=== PATIENT | female | born 1995 | race Caucasian/White ===

== ENCOUNTER 2018-05-20 23:53 | Emergency (ER) | payer MEDICAID ==
[2018-05-21] MEDS ORDERED: NS 1,000 ML IV ONE (00:07)
--- NOTE | 2018-05-21 00:32 | EDPHY ---
H & P Stated Complaint: CP X2 hours, took 7-15mg adderal/ 300mg modafinil today Source: Patient - Personal History LMP (Females 10-55): 8-14 Days Ago Current Tetanus/Diphtheria Vaccine: Yes - Medical/Surgical History Hx Asthma: No Hx Chronic Respiratory Disease: No Hx Diabetes: No Hx Cardiac Disease: No Hx Renal Disease: No Hx Cirrhosis: No Hx Alcoholism: No Hx HIV/AIDS: No Hx Splenectomy or Spleen Trauma: No Other PMH: ADHD , - Social History Smoking Status: Never smoked Time Seen by Provider: 05/21/18 00:28 HPI/ROS: HPI CHIEF COMPLAINT: Chest pain, shortness of breath, anxiety after drug use HISTORY OF PRESENT ILLNESS: 23-year-old female, presents emergency room multitude of complaints which include anxiety, shortness of breath, chest discomfort after taking Adderall tonight, as well as modafanil. Patient reports that she is prescribed both of these medications for attention deficit hyperactivity disorder and weight loss. She takes these regularly. She took 7 doses of Adderall throughout the day today. As well as 300 mg of Modafanil. She typically does this regularly. She also did ecstasy recently. She went for a bike ride tonight which she often does late at night and goes for prolonged by glide to help her lose weight. She also states she has a hard time sleeping at night after taking Adderall. During a bike ride she developed chest pain and shortness of breath and anxiety. States she cannot take a full breath in. Denies history of PE. Denies pleuritic pain. Describes the pain as right-sided anterior chest. Does hurt when you press on her anterior right chest wall but no trauma reported. Past Medical History: Binge eating disorder, anxiety, substance abuse, bipolar disorder Past Surgical History: No recent surgery Social History: History of polysubstance abuse including ecstasy, abuses Adderall Family History: Noncontributory ROS REVIEW OF SYSTEMS: 10 Systems were reviewed and negative with the exception of the elements mentioned in the history of present illness. Exam Constitutional nontoxic, triage nursing summary reviewed, vital signs reviewed , awake/alert. Vital signs stable. Eyes normal conjunctivae and sclera, EOMI, PERRLA. HENT normal inspection, atraumatic, moist mucus membranes, no epistaxis, neck supple/ no meningismus, no raccoon eyes. Respiratory clear to auscultation bilaterally, normal breath sounds, no respiratory distress, no wheezing. Cardiovascular no murmur rub on exam. Right Chest wall mild tender palpation, rate normal, regular rhythm, no murmur, no edema, distal pulses normal. Gastrointestinal soft, non-tender, no rebound, no guarding, normal bowel sounds, no distension, no pulsatile mass. Genitourinary no CVA tenderness. Musculoskeletal no midline vertebral tenderness, full range of motion, no calf swelling, no tenderness of extremities, no meningismus, good pulses, neurovascularly intact. Skin pink, warm, & dry, no rash, skin atraumatic. Neurologic awake, alert and oriented x 3, AAOx3, moves all 4 extremities equally, motor intact, sensory intact, CN II-XII intact, normal cerebellar, normal vision, normal speech. Psychiatric normal mood/affect. Heme/Lymph/Immune no lymphadenopathy. Differential Diagnosis: Includes but is not limited to in a particular order polysubstance abuse, cardiac arrhythmia, stimulant abuse, PE, pneumothorax, cardiac disease, ACS, cardiac arrhythmia, pneumothorax Medical Decision Making: Plan for this patient IV establishment IV fluid bolus , EKG, chest x-ray, D-dimer, troponin, drug screen and re-evaluate. Re-evaluation: EKG interpretation by me on record in [employer] system. Impression time of EKG 0010 sinus rhythm rate of 77, no signs of acute ischemia. No ST elevation or ST depression. No prolonged intervals no T-wave inversions. No signs of cardiac arrhythmia. ED x-ray chest one view negative for acute cardiopulmonary disease. Interpreted myself. D-dimer noted to be negative. Troponin negative. Her 2nd troponin was negative She had a repeat EKG which is time 5:44 a.m. Sinus rhythm rate of 80, normal no acute ischemic changes. EKG nonischemic. Chest x-ray unremarkable 5:30 a.m. Patient resting comfortably no acute distress. Denies chest pain or shortness of breath. Vital signs stable. Drug screen positive for Adderall. 0633: Re-evaluation of the patient she states she is feeling much better however she reports she is very depressed. She denies being suicidal. She is homeless, she is interested in speaking with mental health. Will arrange this for her. She has been abusing Adderall, as well as Ecstasy, she has depression she also reports to me that she diagnosed with bipolar disorder. She states she has had increasing depression and has been turning to substances. She denies SI or HI. She is voluntary would like to speak to mental health palate She is medically cleared needs to speak with mental health voluntary. 0700: Signed over to Dr. Lopez. ([facility],[place]) Constitutional: Initial Vital Signs Temperature (C) 36.5 C 05/20/18 23:56 Heart Rate 85 05/20/18 23:56 Respiratory Rate 18 05/20/18 23:56 Blood Pressure 146/101 H 05/20/18 23:56 O2 Sat (%) 96 05/20/18 23:56 O2 Delivery Mode Room Air O2 (L/minute) 2 Allergies/Adverse Reactions: amoxicillin Allergy (Verified 05/21/18 00:01) Penicillins Allergy (Verified 05/21/18 00:01) Home Medications: Medication Instructions Recorded Adderall 10 MG (*) 05/20/18 - Data Points Laboratory Results: Laboratory Results 05/21/18 00:22 05/21/18 00:22 05/21/18 05/21/18 05/21/18 05:43 02:40 01:37 WBC RBC Hgb Hct MCV MCH MCHC RDW Plt Count MPV Neut % (Auto) Lymph % (Auto) [place] % (Auto) Eos % (Auto) Baso % (Auto) Nucleat RBC Rel Count Absolute Neuts (auto) Absolute Lymphs (auto) Absolute Monos (auto) Absolute Eos (auto) Absolute Basos (auto) Absolute Nucleated RBC Immature Gran % Immature Gran # D-Dimer Sodium Potassium Chloride Carbon Dioxide Anion Gap BUN Creatinine Estimated GFR Glucose Calcium Magnesium Total Bilirubin Conjugated Bilirubin Unconjugated Bilirubin AST ALT Alkaline Phosphatase POC Troponin I 0.00 ng/mL ng/mL 0.00 ng/mL ng/mL (0.00-0.08) (0.00-0.08) Total Protein Albumin Lipase Beta HCG, Qual Urine Opiates Screen NEGATIVE (NEGATIVE) Urine Barbiturates NEGATIVE (NEGATIVE) Ur Phencyclidine Scrn NEGATIVE (NEGATIVE) Ur Amphetamine Screen NON-NEGATIVE H (NEGATIVE) U Benzodiazepines Scrn NEGATIVE (NEGATIVE) Urine Cocaine Screen NEGATIVE (NEGATIVE) U Marijuana (THC) Screen NEGATIVE (NEGATIVE) 05/21/18 05/21/18 05/21/18 00:22 00:22 00:22 WBC RBC Hgb Hct MCV MCH MCHC RDW Plt Count MPV Neut % (Auto) Lymph % (Auto) [place] % (Auto) Eos % (Auto) Baso % (Auto) Nucleat RBC Rel Count Absolute Neuts (auto) Absolute Lymphs (auto) Absolute Monos (auto) Absolute Eos (auto) Absolute Basos (auto) Absolute Nucleated RBC Immature Gran % Immature Gran # D-Dimer 0.30 ug/mLFEU ug/mLFEU (0.00-0.50) Sodium 140 mEq/L mEq/L (135-145) Potassium 3.9 mEq/L mEq/L (3.5-5.2) Chloride 107 mEq/L mEq/L (97-110) Carbon Dioxide 25 mEq/l mEq/l (22-31) Anion Gap 8 mEq/L mEq/L (6-14) BUN 19 mg/dL mg/dL (7-23) Creatinine 0.6 mg/dL mg/dL (0.6-1.0) Estimated GFR > 60 Glucose 93 mg/dL mg/dL (70-100) Calcium 9.8 mg/dL mg/dL (8.5-10.4) Magnesium 1.7 mg/dL mg/dL (1.6-2.3) Total Bilirubin 0.4 mg/dL mg/dL (0.1-1.4) Conjugated Bilirubin 0.2 mg/dL mg/dL (0.0-0.5) Unconjugated Bilirubin 0.2 mg/dL mg/dL (0.0-1.1) AST 28 IU/L IU/L (14-46) ALT 36 IU/L IU/L (9-52) Alkaline Phosphatase 69 IU/L IU/L (38-126) POC Troponin I Total Protein 7.1 g/dL g/dL (6.3-8.2) Albumin 4.4 g/dL g/dL (3.5-5.0) Lipase 127 IU/L IU/L (23-300) Beta HCG, Qual NEGATIVE Urine Opiates Screen Urine Barbiturates Ur Phencyclidine Scrn Ur Amphetamine Screen U Benzodiazepines Scrn Urine Cocaine Screen U Marijuana (THC) Screen 05/21/18 00:22 WBC 8.63 10^3/uL 10^3/uL (3.80-9.50) RBC 4.39 10^6/uL 10^6/uL (4.18-5.33) Hgb 13.5 g/dL g/dL (12.6-16.3) Hct 38.6 % % (38.0-47.0) MCV 87.9 fL fL (81.5-99.8) MCH 30.8 pg pg (27.9-34.1) MCHC 35.0 g/dL g/dL (32.4-36.7) RDW 12.9 % % (11.5-15.2) Plt Count 298 10^3/uL 10^3/uL (150-400) MPV 9.5 fL fL (8.7-11.7) Neut % (Auto) 53.5 % % (39.3-74.2) Lymph % (Auto) 36.4 % % (15.0-45.0) [place] % (Auto) 8.5 % % (4.5-13.0) Eos % (Auto) 0.7 % % (0.6-7.6) Baso % (Auto) 0.7 % % (0.3-1.7) Nucleat RBC Rel Count 0.0 % % (0.0-0.2) Absolute Neuts (auto) 4.62 10^3/uL 10^3/uL (1.70-6.50) Absolute Lymphs (auto) 3.14 10^3/uL H 10^3/uL (1.00-3.00) Absolute Monos (auto) 0.73 10^3/uL 10^3/uL (0.30-0.80) Absolute Eos (auto) 0.06 10^3/uL 10^3/uL (0.03-0.40) Absolute Basos (auto) 0.06 10^3/uL 10^3/uL (0.02-0.10) Absolute Nucleated RBC 0.00 10^3/uL 10^3/uL (0-0.01) Immature Gran % 0.2 % % (0.0-1.1) Immature Gran # 0.02 10^3/uL 10^3/uL (0.00-0.10) D-Dimer Sodium Potassium Chloride Carbon Dioxide Anion Gap BUN Creatinine Estimated GFR Glucose Calcium Magnesium Total Bilirubin Conjugated Bilirubin Unconjugated Bilirubin AST ALT Alkaline Phosphatase POC Troponin I Total Protein Albumin Lipase Beta HCG, Qual Urine Opiates Screen Urine Barbiturates Ur Phencyclidine Scrn Ur Amphetamine Screen U Benzodiazepines Scrn Urine Cocaine Screen U Marijuana (THC) Screen Medications Given: Discontinued Medications Al Hydroxide/Mg Hydroxide (Maalox Susp) 30 ml PO EDNOW ONE Stop: 05/21/18 01:57 Last Admin: 05/21/18 02:03 Dose: 30 ml Hyoscyamine Sulfate (Levsin, Hyomax-Sl) 0.125 mg PO EDNOW ONE Stop: 05/21/18 01:58 Last Admin: 05/21/18 02:02 Dose: 0.125 mg Hyoscyamine Sulfate (Levsin, Hyomax-Sl) 0.125 mg PO EDNOW ONE Stop: 05/21/18 02:05 Last Admin: 05/21/18 02:05 Dose: 0.125 mg Sodium Chloride (Ns) 1,000 mls @ 0 mls/hr IV EDNOW ONE; Wide Open PRN Reason: Protocol Stop: 05/21/18 00:08 Last Admin: 05/21/18 00:24 Dose: 1,000 mls Lidocaine (Lidocaine 2% Jelly) 1 adal TP EDNOW ONE Stop: 05/21/18 01:59 Last Admin: 05/21/18 02:06 Dose: 15 ml Lorazepam (Ativan Injection) 1 mg IVP EDNOW ONE Stop: 05/21/18 01:21 Last Admin: 05/21/18 01:33 Dose: 1 mg Point of Care Test Results: Chemistry 05/21/18 05/21/18 05:43 01:37 POC Troponin I 0.00 ng/mL ng/mL 0.00 ng/mL ng/mL (0.00-0.08) (0.00-0.08) Departure - Departure Disposition: Home, Routine, Self-Care Clinical Impression: Anxiety, Polysubstance abuse Condition: Good Instructions: Polysubstance Abuse (ED), Anxiety (ED) Referrals: NONE *PRIMARY CARE P,. [Primary Care Provider] - As per Instructions [facility] [Clinic] - As per Instructions
[2018-05-21 00:36] LABS: PLATELET COUNT 298 10^3/uL (150-400)
[2018-05-21] MEDS ORDERED: LORazepam 2 MG/ML INJ IVP ONE (01:20)
[2018-05-21] MEDS ORDERED: MAG HYDROX/AL HYDROX/SIMETH 30 ML UDCUP PO ONE (01:56)
[2018-05-21] MEDS ORDERED: HYOSCYAMINE SULFATE 0.125 MG TAB PO ONE ×2 (01:57→02:04)
[2018-05-21] MEDS ORDERED: LIDOCAINE 2% JELLY 5 ML TUBE TP ONE (01:58)
[2018-05-21] MEDS ORDERED: HYOSCYAMINE SULFATE 0.125 MG TAB ONE (01:59)
[2018-05-21] MEDS ORDERED: LIDOCAINE 2% VISCOUS 15 ML UDCUP ONE (02:00)
--- NOTE | 2018-05-21 07:12 | CPEKG ---
Test Reason : OPEN Blood Pressure : / mmHG Vent. Rate : 077 BPM Atrial Rate : 077 BPM P-R Int : 134 ms QRS Dur : 084 ms QT Int : 371 ms P-R-T Axes : 036 050 041 degrees QTc Int : 420 ms Sinus rhythm Confirmed by Joseph No ([id number]) on 05/21/2018 7:12:17 AM Referred By: Confirmed By:Joseph No
--- NOTE | 2018-05-21 07:12 | CPEKG ---
Test Reason : OPEN Blood Pressure : / mmHG Vent. Rate : 080 BPM Atrial Rate : 079 BPM P-R Int : 133 ms QRS Dur : 077 ms QT Int : 370 ms P-R-T Axes : 046 047 036 degrees QTc Int : 427 ms Sinus rhythm Confirmed by Joseph No ([id number]) on 05/21/2018 7:12:18 AM Referred By: Confirmed By:Joseph No
[2018-05-21 09:01] VITALS: BP 115/73
== END 2018-05-21 09:03 | disposition home or self-care (01) ==
DX: R41.9 Unspecified symptoms and signs involving cognitive functions and awareness (principal); F19.10 Other psychoactive substance abuse, uncomplicated; E86.9 Volume depletion, unspecified; Z59.0 Homelessness
CPT/HCPCS: 80305; 84484-ER; 96374; J2060

== ENCOUNTER 2018-10-04 12:40 | Emergency (ER) | payer MEDICAID, OTHER ==
[2018-10-04] MEDS ORDERED: NS 1,000 ML IV ONE (13:48)
[2018-10-04 14:00] LABS: PLATELET COUNT 300 10^3/uL (150-400)
--- NOTE | 2018-10-04 14:38 | EDPHY ---
General Time Seen by Provider: 10/04/18 13:00 Narrative: CLINICAL IMPRESSION: Pelvic pain, vaginal bleeding ASSESSMENT/PLAN: Patient is a 23 year old female who presents who presents to the emergency department with acute onset pelvic pain and vaginal bleeding. Patient is afebrile and nontoxic appearing, she is in no acute distress. Her abdomen is soft, generalized tenderness to palpation in the lower abdomen L>R, no peritoneal signs. CBC with no evidence of infection or acute blood loss anemia. BMP unremarkable. negative, rules out ectopic. Pelvic exam with normal appearing cervix, no cervical motion tenderness or discharge. Urinalysis with blood, no evidence of infection. Vaginal pathogens still pending. US with no cystic or solid adnexal masses, no intraperitoneal fluid, normal blood flow to ovaries. No evidence of torsion, no ovarian cyst, TOA and no evidence of surgical abdomen. There were also no findings to suggest other intra-abdominal processes to include appendicitis, diverticulitis, obstruction or perforation. Patient was very reassuring workup, query dysfunctional uterine bleeding. In light of sudden-onset pelvic pain and vaginal bleeding I have a very low suspicion for infectious process or PID. No antibiotics were given. She does not have a primary care provider or OBGYN, referral given for both. Conservative return precautions discussed. DIFFERENTIAL DX: Abdominal pain in a female including but not limited to ovarian cyst, pelvic inflammatory disease, ovarian torsion, urinary tract infection, and appendicitis. ED COURSE: 1335: Case discussed with Dr. Lopez. 1421: Pelvic exam performed with Erinn LOVE temple meat cutter. 1522: Case discussed with radiologist, pelvic ultrasound with no acute findings. 1526: Results discussed with patient, she is very reassured. Her abdomen is soft with very mild tenderness to palpation in her generalized lower abdomen, still left greater than right. There are no peritoneal signs and there is no evidence of a surgical abdomen. CHIEF COMPLAINT: Pelvic pain, vaginal bleeding HPI: Patient is a 23-year-old female with a history of amphetamine abuse currently on no walks own presents to the emergency department with acute, sudden onset vaginal bleeding and pelvic pain. Patient reports this morning she woke up feeling fine, she was at work when she had a sudden onset generalized lower abdominal pain, left greater than right. Shortly thereafter she noticed bleeding. Patient has not had a period since July, she does experience irregular menses. She is sexually active with multiple partners, does not use protection. She does not have a concern for STI. Patient denies any similar episodes in the past. She denies any significant bleeding, blood clots or passage of tissue. She is unsure if she is . She took 4 ibuprofen prior to arrival with improvement of her discomfort. She did experience some associated nausea however did not have any vomiting. She denies any chest pain , shortness of breath or upper abdominal pain. She denies any urinary symptoms to include dysuria, hematuria or frequency. Bowel movements have been regular and normal. Also denies any fever. She denies any vaginal pain or vaginal discharge. Was feeling absolutely fine up until this morning when the symptoms started. PMH: Amphetamine abuse Pertinent Past Surgical History: Denies Family History: Not contributory Social History: Denies current illicit drug use, alcohol or cigarette smoking REVIEW OF SYSTEMS: All other systems negative Constitutional: No fever, no chills, appetite change. Eyes: No discharge, vision change ENT: No sore throat, congestion, ear pain. Cardiovascular: No chest pain, no palpitations. Respiratory: No cough, no shortness of breath. Gastrointestinal: Nausea, no vomiting or diarrhea. Pelvic pain. Genitourinary: No dysuria or hematuria. No flank pain. Musculoskeletal: No back pain, joint swelling, joint pain, myalgias. Skin: No rashes, color change. Neurological: No headache, dizziness, weakness. PHYSICAL EXAM: General Appearance: Well-appearing, mildly uncomfortable appearing however not toxic-appearing. HENT: Normocephalic, atraumatic. Bilateral external ears are normal. Bilateral tympanic membranes are normal with pearly farooq reflex. Nares are clear, mucosa is pink. Oropharynx is clear, uvula is midline. There is no tonsillar enlargement or exudate. The dentition is normal. Eyes: PERRLA, EOMI. Conjunctiva pink, no pallor or injection. Neck: Supple, nontender, no lymphadenopathy, no midline pain, FROM, no meningismus. Respiratory: There are no retractions, lungs are clear to auscultation. Cardiac: Regular rate and rhythm, no murmurs or gallops. Gastrointestinal: Patient's abdomen is soft and nondistended, no appreciable incisions. Bowel sounds are present. Patient has generalized lower abdominal tenderness to palpation, left greater than right without rebound or guarding. No masses or hernias appreciated. No rigidity, guarding or focal peritoneal findings. Pelvic exam: Daniela Plasencia RN. Cervix is pink and healthy, nonfriable, no evidence of strawberry cervix. No cervical motion tenderness or she and L sign. There is no discharge. There is a moderate amount of dark blood noted in her vaginal vault. Neurological: Alert and oriented x 3, CN 2-12 grossly intact, normal sensation and strength. Skin: Warm, dry, no rashes, no nodules on palpation. Musculoskeletal: Extremities are symmetrical, full range of motion, no tenderness, deformity, swelling, or erythema. Psychiatric: Mood and affect are normal, there is no agitation. MEDICAL DECISION MAKING: Patient was seen independently. Secondary supervising physician at time of evaluation was Dr. Lopez, he did not evaluate this patient. Diagnosis: Pelvic pain, vaginal bleeding. Summary: See Assessment and Plan for summary of ED visit Clinical lab tests: ordered / reviewed. Independent visualization of images, tracing, or specimens: Yes. Decision to obtain medical records or history from someone other than the patient: No Review / Summarize previous medical records: Yes Discussed patient with another provider: Yes, Dr. Lopez Patient Progress: Stable, discharge. - Diagnostics Imaging Results: Imaging Impressions Pelvic/Renal Ultrasound 10/04/18 14:11 Impression: 1. Normal ovaries. No ovarian cyst, free fluid, or torsion. 2. Normal uterus and endometrial lining. Findings discussed with Emergency Department, MARIAM Aguayo on 10/04/2018 at 15:05 hours. - History Smoking Status: Never smoked - Objective Vital Signs: Initial Vital Signs Temperature (C) 36.7 C 10/04/18 12:43 Heart Rate 70 10/04/18 12:43 Respiratory Rate 18 10/04/18 12:43 Blood Pressure 108/84 H 10/04/18 12:43 O2 Sat (%) 99 10/04/18 12:43 O2 Delivery Mode Room Air Allergies/Adverse Reactions: amoxicillin Allergy (Verified 10/04/18 12:41) Penicillins Allergy (Verified 10/04/18 12:41) Home Medications: Medication Instructions Recorded Naltrexone 10/04/18 Laboratory Results: Laboratory Results 10/04/18 13:45 10/04/18 13:27 10/04/18 10/04/18 10/04/18 14:50 14:20 13:45 WBC RBC Hgb Hct MCV MCH MCHC RDW Plt Count MPV Neut % (Auto) Lymph % (Auto) [place] % (Auto) Eos % (Auto) Baso % (Auto) Nucleat RBC Rel Count Absolute Neuts (auto) Absolute Lymphs (auto) Absolute Monos (auto) Absolute Eos (auto) Absolute Basos (auto) Absolute Nucleated RBC Immature Gran % Immature Gran # Sodium Potassium Chloride Carbon Dioxide Anion Gap BUN Creatinine Estimated GFR Glucose Calcium Beta HCG, Qual NEGATIVE Urine Color YELLOW Urine Appearance CLEAR Urine pH 5.0 (5.0-7.5) Ur Specific [place] 1.021 (1.002-1.030) Urine Protein NEGATIVE (NEGATIVE) Urine Ketones NEGATIVE (NEGATIVE) Urine Blood 3+ H (NEGATIVE) Urine Nitrate NEGATIVE (NEGATIVE) Urine Bilirubin NEGATIVE (NEGATIVE) Urine Urobilinogen NEGATIVE EU EU (0.2-1.0) Ur Leukocyte Esterase NEGATIVE (NEGATIVE) Urine RBC 1-3 /hpf /hpf (0-3) Urine WBC 1-3 /hpf /hpf (0-3) Ur Epithelial Cells TRACE /lpf /lpf (NONE-1+) Urine Glucose NEGATIVE (NEGATIVE) Lanie species DNA Pending Gard[place]rella DNA Probe Pending Trichomonas DNA Probe Pending 10/04/18 10/04/18 13:45 13:27 WBC 6.66 10^3/uL 10^3/uL (3.80-9.50) RBC 4.99 10^6/uL 10^6/uL (4.18-5.33) Hgb 15.1 g/dL g/dL (12.6-16.3) Hct 44.5 % % (38.0-47.0) MCV 89.2 fL fL (81.5-99.8) MCH 30.3 pg pg (27.9-34.1) MCHC 33.9 g/dL g/dL (32.4-36.7) RDW 13.2 % % (11.5-15.2) Plt Count 300 10^3/uL 10^3/uL (150-400) MPV 9.1 fL fL (8.7-11.7) Neut % (Auto) 72.6 % % (39.3-74.2) Lymph % (Auto) 18.3 % % (15.0-45.0) [place] % (Auto) 8.3 % % (4.5-13.0) Eos % (Auto) 0.3 % L % (0.6-7.6) Baso % (Auto) 0.3 % % (0.3-1.7) Nucleat RBC Rel Count 0.0 % % (0.0-0.2) Absolute Neuts (auto) 4.84 10^3/uL 10^3/uL (1.70-6.50) Absolute Lymphs (auto) 1.22 10^3/uL 10^3/uL (1.00-3.00) Absolute Monos (auto) 0.55 10^3/uL 10^3/uL (0.30-0.80) Absolute Eos (auto) 0.02 10^3/uL L 10^3/uL (0.03-0.40) Absolute Basos (auto) 0.02 10^3/uL 10^3/uL (0.02-0.10) Absolute Nucleated RBC 0.00 10^3/uL 10^3/uL (0-0.01) Immature Gran % 0.2 % % (0.0-1.1) Immature Gran # 0.01 10^3/uL 10^3/uL (0.00-0.10) Sodium 137 mEq/L mEq/L (135-145) Potassium 4.3 mEq/L mEq/L (3.5-5.2) Chloride 103 mEq/L mEq/L (97-110) Carbon Dioxide 24 mEq/l mEq/l (22-31) Anion Gap 10 mEq/L mEq/L (6-14) BUN 17 mg/dL mg/dL (7-23) Creatinine 0.6 mg/dL mg/dL (0.6-1.0) Estimated GFR > 60 Glucose 85 mg/dL mg/dL (70-100) Calcium 9.3 mg/dL mg/dL (8.5-10.4) Beta HCG, Qual Urine Color Urine Appearance Urine pH Ur Specific [place] Urine Protein Urine Ketones Urine Blood Urine Nitrate Urine Bilirubin Urine Urobilinogen Ur Leukocyte Esterase Urine RBC Urine WBC Ur Epithelial Cells Urine Glucose Lanie species DNA Gardnerella DNA Probe Trichomonas DNA Probe Medications Given: Discontinued Medications Sodium Chloride (Ns) 1,000 mls @ 0 mls/hr IV EDNOW ONE; Wide Open PRN Reason: Protocol Stop: 10/04/18 13:49 Last Admin: 10/04/18 13:49 Dose: 1,000 mls Departure - Departure Disposition: Home, Routine, Self-Care Clinical Impression: Vaginal bleeding, Abdominal cramping Condition: Good Instructions: Pelvic Pain in Women (ED) Additional Instructions: DISCHARGE INSTRUCTIONS FROM YOUR PROVIDER Thank you for visiting our emergency department today. Please keep in mind that discharge from the emergency department does not mean that there is nothing wrong - it simply means that we have not identified an emergency condition that requires further evaluation or treatment in the hospital. Please establish care with a primary care provider, you have also been provided in OBGYN referral. Continue using pads. Monitor the amount your bleeding, return for significant increased bleeding, dizziness, lightheadedness or significantly worsening pain. For pain control: You may take Tylenol, I recommend 500-1000 mg every 6-8 hours as needed. Take with food and a full glass of water. Stop taking if this is upsetting you stomach. Do not exceed 4000 mg in a 24 hr period. You may also take ibuprofen, recommend 400 mg every 6 hr. Take with food and a full glass of water. Stop taking if this upsets your stomach. Do not exceed 2400 mg in a 24 hr period. Return for increased or unmanageable pain, new site or character of pain, flank pain, groin pain, pelvic pain, development of fever, chills, recurrent vomiting , vomiting blood or coffee grounds, diarrhea, constipation, bloody stools, black tarry stools, burning or pain with urination, bloody urine, inability to urinate, decreased urine output or other signs of dehydration, dizziness, weakness, fainting, difficulty breathing or swallowing, chest pain, or for any other new, worsening or worrisome symptoms. People present with illnesses and injuries in different ways, and it is always possible that we have missed something. Again, thank you for choosing our emergency department. We hope that you feel better. Referrals: Josee Gudino MD [Medical Doctor] - 2-3 days, call for appt. ( Please establish care with a primary care provider) Ronaldo Moreno MD [Medical Doctor] - 2-3 days, call for appt.
[2018-10-04 15:55] VITALS: BP 113/63
[2018-10-07 11:40] LABS: GC AMPLIFICATION GENPROBE NEGATIVE (NEGATIVE)
== END 2018-10-04 15:55 | disposition home or self-care (01) ==
DX: R10.2 Pelvic and perineal pain (principal); N93.9 Abnormal uterine and vaginal bleeding, unspecified; E86.9 Volume depletion, unspecified